=== PATIENT | female | born 1970 | race Caucasian/White ===

== ENCOUNTER 2019-10-07 12:18 | Inpatient (IN) ==
[2019-10-07] MEDS ORDERED: SODIUM CHLORIDE 0.9% 1,000 ML IV STA (13:29)
[2019-10-07] MEDS ORDERED: ONDANSETRON 4 MG/2 ML VIAL IV STA ×2 (13:29→16:09)
[2019-10-07 14:28] LABS: Basophils % 0.4 % (0.0-0.8); Eosinophils # 0.2 10*3/uL (0.0-0.87); Hematocrit 41.3 VOL% (35.7-47.0); Hemoglobin 13.6 GM/DL (12.0-16.0); Immature Granulocytes % 0.2 %; Immature Granulocytes Absolute 0.02 #; Lymphocytes # 3.2 10*3/uL (1.4-4.0); Lymphocytes % 33.7 % (21.3-54.2); Mean Corpuscular HGB Conc 32.9 GM/DL (32-36); Mean Corpuscular Volume 88.4 FL (87-102); Mean Platelet Volume 11.4 FL (9.6-12.0); Monocytes % 8.5 % (1.7-12.7); Neutrophils % 55.2 % (38.7-73.9); Platelet Count 209 T/CUMM (130-400); Red Blood Count 4.67 MC/CUMM (3.8-5.5); Red Cell Distribution Width 13.1 % (9.3-17.3); White Blood Count 9.4 T/CUMM (4-12)
[2019-10-07 14:40] LABS: Apearance,Urine CLEAR (Clear); Bacteria,Urine Occasional /HPF (Few); Bilirubin,Urine Negative (Negative); Blood, Urine Negative (Negative); Glucose,Urine (UA) Negative (Negative); Ketones,Urine 5 mg/dL (Negative); Mucus,Urine Occasional /LPF (Occasional); Nitrite,Urine Negative (Negative); Protein,Urine Negative; RBC,Urine 1 /HPF (0-4); Squamous Epithelial Cell,Urine Occasional /HPF (0-10); Urine Color Yellow (Yellow); Urine Specific Gravity 1.013 (1.001-1.035); Urine Urobilinogen < 2.0 EU/DL (0.2-1.0); WBC,Urine 1 /HPF (0-6)
[2019-10-07 14:49] LABS: Albumin 3.2 G/DL (3.4-5.0); Bilirubin,Total 0.5 MG/DL (0.2-1.0); Calcium 9.3 MG/DL (8.5-10.1); Osmolality,Calculated 263.5 MOS/KG (273-304); Total Protein 7.8 G/DL (6.4-8.3)
[2019-10-07] MEDS ORDERED: GLUCAGON 1 MG VIAL IM PRN (17:31)
[2019-10-07] MEDS ORDERED: ACETAMINOPHEN 325 MG TABLET PO PRN (17:31)
[2019-10-07] MEDS ORDERED: DEXTROSE 10% 250 ML BAG IV PRN (17:31)
[2019-10-07] MEDS: SODIUM CHLORIDE 0.9% 1,000 ML IV SCH (18:30)
[2019-10-08 06:33] LABS: Basophils % 0.3 % (0.0-0.8); Eosinophils # 0.1 10*3/uL (0.0-0.87); Eosinophils % 0.9 % (0.00-10.9); Hematocrit 39.6 VOL% (35.7-47.0); Hemoglobin 13.3 GM/DL (12.0-16.0); Immature Granulocytes % 0.2 %; Immature Granulocytes Absolute 0.02 #; Lymphocytes # 2.1 10*3/uL (1.4-4.0); Lymphocytes % 23.5 % (21.3-54.2); Mean Corpuscular HGB Conc 33.6 GM/DL (32-36); Mean Platelet Volume 11.4 FL (9.6-12.0); Monocytes % 6.9 % (1.7-12.7); Neutrophils % 68.2 % (38.7-73.9); Platelet Count 235 T/CUMM (130-400); Red Cell Distribution Width 13.2 % (9.3-17.3)
[2019-10-08 06:54] LABS: Calcium 8.6 MG/DL (8.5-10.1); Osmolality,Calculated 274.5 MOS/KG (273-304)
[2019-10-08] MEDS: LEVOTHYROXINE 88 MCG TABLET PO SCH (08:46)
[2019-10-08] MEDS: SODIUM CHLORIDE 0.9% 1,000 ML IV SCH (08:48)
[2019-10-08] MEDS ORDERED: INDOCYANINE GREEN 25 MG VIAL IV ONE (15:52)
[2019-10-09] MEDS: SODIUM CHLORIDE 0.9% 1,000 ML IV SCH ×2 (02:09→16:04)
[2019-10-09 06:13] LABS: Basophils % 0.2 % (0.0-0.8); Eosinophils # 0.1 10*3/uL (0.0-0.87); Eosinophils % 0.6 % (0.00-10.9); Hemoglobin 13.4 GM/DL (12.0-16.0); Immature Granulocytes % 0.3 %; Immature Granulocytes Absolute 0.04 #; Lymphocytes # 2.2 10*3/uL (1.4-4.0); Lymphocytes % 18.3 % (21.3-54.2); Mean Corpuscular HGB Conc 32.7 GM/DL (32-36); Mean Corpuscular Volume 88.7 FL (87-102); Mean Platelet Volume 11.4 FL (9.6-12.0); Monocytes % 7.3 % (1.7-12.7); Neutrophils % 73.3 % (38.7-73.9); Platelet Count 237 T/CUMM (130-400); Red Blood Count 4.62 MC/CUMM (3.8-5.5); Red Cell Distribution Width 13.2 % (9.3-17.3); White Blood Count 12.2 T/CUMM (4-12)
[2019-10-09] MEDS ORDERED: INDOCYANINE GREEN 25 MG VIAL IV ONE (06:30)
[2019-10-09] MEDS ORDERED: cefOXitin 2,000 MG in SYRINGE 1 EACH IV ONE (06:30)
[2019-10-09 06:42] LABS: Albumin 3.1 G/DL (3.4-5.0); Bilirubin,Total 0.7 MG/DL (0.2-1.0); Calcium 8.4 MG/DL (8.5-10.1); Osmolality,Calculated 272.7 MOS/KG (273-304); Total Protein 7.3 G/DL (6.4-8.3)
[2019-10-09] MEDS: LEVOTHYROXINE 88 MCG TABLET PO SCH (09:12)
[2019-10-09] MEDS ORDERED: MAGNESIUM CITRATE 300 ML BOTTLE PO ONE (12:24)
[2019-10-09] MEDS: PIPERACILLIN/TAZOBACTAM 3,375 MG in SODIUM CHLORIDE 0.9% 100 ML IV SCH ×2 (17:52→23:51)
[2019-10-10] MEDS ORDERED: cefOXitin 2,000 MG in SYRINGE 1 EACH IV ONE (06:30)
[2019-10-10] MEDS ORDERED: INDOCYANINE GREEN 25 MG VIAL IV ONE (06:30)
[2019-10-10] MEDS ORDERED: TISSUE ADHESIVE 1 EACH APPLICATOR TOP ONE (07:53)
[2019-10-10] MEDS ORDERED: LIDOCAINE 1%/EPI INJ 20 ML VIAL ONE (07:54)
[2019-10-10] MEDS ORDERED: BUPIVACAINE MPF 0.25% 30 ML VIAL ONE (07:54)
[2019-10-10] MEDS ORDERED: LACTATED RINGERS 1,000 ML IV SCH (08:30)
[2019-10-10] MEDS ORDERED: SUGAMMADEX 200 MG/2 ML VIAL IV ONE (09:39)
[2019-10-10] MEDS ORDERED: ONDANSETRON 4 MG/2 ML VIAL IV PRN (09:41)
[2019-10-10] MEDS ORDERED: HYDROmorphone 2 MG/1 ML VIAL ONE (09:47)
[2019-10-10] MEDS ORDERED: ONDANSETRON 4 MG/2 ML VIAL ONE ×2 (09:47→10:01)
[2019-10-10] MEDS: HYDROmorphone 2 MG/1 ML VIAL IV PRN ×4 (09:50→10:05)
[2019-10-10] MEDS ORDERED: propofoL 200 MG/20 ML VIAL IV ONE (10:00)
[2019-10-10] MEDS ORDERED: SEVOFLURANE 1 UNIT/15 MINUTE INH ONE (10:01)
[2019-10-10] MEDS ORDERED: fentaNYL 100 MCG/2 ML VIAL ONE (10:01)
[2019-10-10] MEDS ORDERED: LIDOCAINE 2% 5 ML VIAL ONE (10:01)
[2019-10-10] MEDS ORDERED: PHENYLEPHRINE 1 MG/10 ML SYRINGE IV ONE (10:01)
[2019-10-10] MEDS ORDERED: NEOSTIGMINE 10 MG/10 ML VIAL ONE (10:01)
[2019-10-10] MEDS ORDERED: GLYCOPYRROLATE 0.4 MG/2 ML VIAL ONE (10:01)
[2019-10-10] MEDS ORDERED: ROCURONIUM 100 MG/10 ML VIAL IV ONE (10:01)
[2019-10-10] MEDS: SODIUM CHLORIDE 0.9% 1,000 ML IV SCH (10:17)
[2019-10-10 11:05] LABS: Basophils % 0.2 % (0.0-0.8); Eosinophils # 0.1 10*3/uL (0.0-0.87); Eosinophils % 0.4 % (0.00-10.9); Hematocrit 40.5 VOL% (35.7-47.0); Immature Granulocytes % 0.5 %; Immature Granulocytes Absolute 0.08 #; Lymphocytes # 1.8 10*3/uL (1.4-4.0); Lymphocytes % 11.4 % (21.3-54.2); Mean Corpuscular HGB Conc 32.1 GM/DL (32-36); Mean Corpuscular Volume 91.6 FL (87-102); Mean Platelet Volume 11.3 FL (9.6-12.0); Monocytes % 6.1 % (1.7-12.7); Neutrophils % 81.4 % (38.7-73.9); Platelet Count 215 T/CUMM (130-400); Red Blood Count 4.42 MC/CUMM (3.8-5.5); Red Cell Distribution Width 13.4 % (9.3-17.3)
[2019-10-10 11:22] LABS: Osmolality,Calculated 274.7 MOS/KG (273-304)
[2019-10-10] MEDS: PIPERACILLIN/TAZOBACTAM 3,375 MG in SODIUM CHLORIDE 0.9% 100 ML IV SCH ×2 (11:23→18:11)
[2019-10-10] MEDS: LEVOTHYROXINE 88 MCG TABLET PO SCH (13:10)
[2019-10-10] MEDS: MAGNESIUM CITRATE 300 ML BOTTLE PO PRN (13:10)
[2019-10-10] MEDS: ONDANSETRON 4 MG/2 ML VIAL IV PRN (18:00)
[2019-10-11] MEDS: PIPERACILLIN/TAZOBACTAM 3,375 MG in SODIUM CHLORIDE 0.9% 100 ML IV SCH ×3 (00:24→15:42)
[2019-10-11] MEDS: SODIUM CHLORIDE 0.9% 1,000 ML IV SCH ×4 (00:24→22:13)
[2019-10-11] MEDS: MAGNESIUM CITRATE 300 ML BOTTLE PO PRN (06:03)
[2019-10-11 06:48] LABS: Basophils # 0.1 10*3/uL (0.0-0.2); Basophils % 0.4 % (0.0-0.8); Eosinophils # 0.1 10*3/uL (0.0-0.87); Eosinophils % 0.8 % (0.00-10.9); Hematocrit 41.6 VOL% (35.7-47.0); Hemoglobin 13.5 GM/DL (12.0-16.0); Immature Granulocytes % 0.4 %; Immature Granulocytes Absolute 0.05 #; Lymphocytes # 2.1 10*3/uL (1.4-4.0); Lymphocytes % 15.8 % (21.3-54.2); Mean Corpuscular HGB Conc 32.5 GM/DL (32-36); Mean Corpuscular Volume 89.1 FL (87-102); Mean Platelet Volume 11.9 FL (9.6-12.0); Monocytes % 7.3 % (1.7-12.7); Neutrophils % 75.3 % (38.7-73.9); Platelet Count 223 T/CUMM (130-400); Red Blood Count 4.67 MC/CUMM (3.8-5.5); Red Cell Distribution Width 13.4 % (9.3-17.3); White Blood Count 13.1 T/CUMM (4-12)
[2019-10-11 07:15] LABS: Calcium 8.7 MG/DL (8.5-10.1)
[2019-10-11] MEDS: ONDANSETRON 4 MG/2 ML VIAL IV PRN (08:54)
[2019-10-11] MEDS: LEVOTHYROXINE 88 MCG TABLET PO SCH (10:33)
[2019-10-11] MEDS ORDERED: LORazepam 2 MG/1 ML VIAL IV ONE (12:58)
[2019-10-11] MEDS ORDERED: BENZOCAINE 20% SPRAY 57 GM CAN TOP ONE (12:59)
[2019-10-11] MEDS ORDERED: HYDROmorphone 2 MG/1 ML VIAL IV PRN (16:11)
[2019-10-11] MEDS: KETOROLAC 30 MG/1 ML VIAL IV SCH (22:03)
[2019-10-12] MEDS: PIPERACILLIN/TAZOBACTAM 3,375 MG in SODIUM CHLORIDE 0.9% 100 ML IV SCH ×3 (01:04→16:49)
[2019-10-12] MEDS: KETOROLAC 30 MG/1 ML VIAL IV SCH ×4 (03:59→22:19)
[2019-10-12 06:00] LABS: Basophils % 0.2 % (0.0-0.8); Eosinophils # 0.1 10*3/uL (0.0-0.87); Eosinophils % 0.4 % (0.00-10.9); Hematocrit 37.4 VOL% (35.7-47.0); Hemoglobin 12.1 GM/DL (12.0-16.0); Immature Granulocytes % 0.5 %; Immature Granulocytes Absolute 0.06 #; Lymphocytes # 1.7 10*3/uL (1.4-4.0); Lymphocytes % 14.3 % (21.3-54.2); Mean Corpuscular HGB Conc 32.4 GM/DL (32-36); Mean Corpuscular Volume 90.8 FL (87-102); Mean Platelet Volume 11.8 FL (9.6-12.0); Monocytes % 7.5 % (1.7-12.7); Neutrophils % 77.1 % (38.7-73.9); Platelet Count 227 T/CUMM (130-400); Red Blood Count 4.12 MC/CUMM (3.8-5.5); Red Cell Distribution Width 13.2 % (9.3-17.3); White Blood Count 12.2 T/CUMM (4-12)
[2019-10-12 07:23] LABS: Calcium 8.2 MG/DL (8.5-10.1)
[2019-10-12 07:24] LABS: Osmolality,Calculated 283.1 MOS/KG (273-304)
[2019-10-12] MEDS: LEVOTHYROXINE 88 MCG TABLET PO SCH (08:48)
[2019-10-13] MEDS: PIPERACILLIN/TAZOBACTAM 3,375 MG in SODIUM CHLORIDE 0.9% 100 ML IV SCH ×2 (00:55→08:31)
[2019-10-13] MEDS: KETOROLAC 30 MG/1 ML VIAL IV SCH ×2 (04:34→08:31)
[2019-10-13 08:20] VITALS: BP 138/96
[2019-10-13] MEDS: LEVOTHYROXINE 88 MCG TABLET PO SCH (08:31)
[2019-10-13 09:22] LABS: Basophils # 0.1 10*3/uL (0.0-0.2); Basophils % 0.5 % (0.0-0.8); Eosinophils # 0.3 10*3/uL (0.0-0.87); Eosinophils % 2.7 % (0.00-10.9); Hematocrit 36.7 VOL% (35.7-47.0); Hemoglobin 12.1 GM/DL (12.0-16.0); Immature Granulocytes % 0.4 %; Immature Granulocytes Absolute 0.04 #; Lymphocytes # 2.1 10*3/uL (1.4-4.0); Lymphocytes % 21.2 % (21.3-54.2); Mean Platelet Volume 11.5 FL (9.6-12.0); Monocytes % 7.4 % (1.7-12.7); Neutrophils % 67.8 % (38.7-73.9); Platelet Count 220 T/CUMM (130-400); Red Blood Count 4.08 MC/CUMM (3.8-5.5); Red Cell Distribution Width 13.3 % (9.3-17.3); White Blood Count 9.8 T/CUMM (4-12)
[2019-10-13 09:41] LABS: Calcium 8.4 MG/DL (8.5-10.1); Osmolality,Calculated 274.8 MOS/KG (273-304)
== END 2019-10-13 11:30 | disposition home health service (06) | DRG 418 ==
LOC: N.ED 12:18 → N.EDINP 12:18 → N.TELES 17:58
PROVIDERS: ADMIT Family Medicine; ATTEND Family Medicine